=== PATIENT | female | born 1950 | race Hispanic/Latino ===

== ENCOUNTER 2019-06-21 06:40 | Day surgery (SDC) | payer MEDICARE ==
[~2019-06-21] VITALS: Ht 154.9 cm; Wt 102.1 kg
[~2019-06-21 06:40] MED LIST: AMLODIPINE BES2.5 MG PO; ASPIR-LOW81 MG PO; PANTOPRAZOLE SO40 MG PO; VITAMIN D1000 UNI1 PO
[2019-06-21] MEDS ORDERED: VITAMIN C500 M1 PO (07:04)
--- NOTE | 2019-06-21 09:25 | NUR ---
06/21/19 09 Carmen Pérez 0920 PATIENT ARRIVES TO PACU UNRESPONSIVE TO VERBAL STIMULI, ORAL AIRWAY IN PLACE. RESP EVEN AND UNLABORED, MASK AT 6 LITERS. 09 PATIENT OPENING EYES OFF/ON. FOLLOWS COMMANDS TO OPEN MOUTH. ORAL AIRWAY REMOVED. RESP EVEN AND UNLABORED, MASK CONTINUED AT 6 LITERS. 09 PATIENT REMOVES MASK TO ITCH FACE, THEN BACK TO SLEEP. RESP EVEN AND UNLABORED, ROOM AIR SATS >95%.
--- NOTE | 2019-06-21 09:40 | NUR ---
FAMILY AT THE BEDSIDE. ICED WATER GIVEN. CALL LIGHT WITHIN REACH.
[2019-06-21] MEDS ORDERED: NORCO 5-325 TA1 EACH PO (10:12)
--- NOTE | 2019-06-21 10:31 | NUR ---
PATIENT UP TO THE BATHROOM WITH RN STANDBY. PATIENT AMBULATES WELL AND REPORTS SUCCESSFUL VOID. PATIENT REQUESTS PAIN MEDICINE. CRACKERS GIVEN. PATIENT IS EATING AND DRINKING AND TOLERATING THAT WELL. DR. NUNEZ IN TO ASSESS FACIAL NERVES AND ALL WNL. DISCHARGE INSTRUCTIONS ARE GIVEN IN PRESENCE OF FAMILY AND ALL VERBALIZE UNDERSTANDING.
--- NOTE | 2019-06-21 12:33 | PREHP ---
[facility] [address], [place] [address] Signed ADMISSION DATE: 06/21/2019 ANTICIPATED DATE OF SURGERY: 06/21/2019 CHIEF COMPLAINT: Left cheek mass. HISTORY: Lincoln is a 69-year-old lady, who has had a left cheek mass for several years. She has been evaluated by Dr. Vasques in [place] starting in 2014, again in 2017, and again earlier this year. The mass has not really changed on CAT scan evaluation, but it swells up occasionally is very uncomfortable. She has also had some right facial swelling recently, which probably related to a salivary gland infection, which has settled down. PAST HISTORY/REVIEW OF SYSTEMS: Generally positive for diabetes, hypertension. ALLERGIES: Macrobid, meloxicam. CURRENT MEDICATIONS: Amlodipine, pantoprazole, low-dose aspirin. PAST SURGICAL HISTORY: She had cholecystectomy about 20 years ago. SOCIAL HISTORY: She is , lives in [place] and retired. No alcohol or tobacco. FAMILY HISTORY: Noncontributory. PHYSICAL EXAMINATION: VITAL SIGNS: Stable, afebrile. GENERAL: Well-developed, well-nourished female, in no distress. HEAD AND NECK: She has about 15 mm nodule in the right cheek. This is just beneath the malar eminence in the soft tissue of the cheek, just anterior to the masseter overlying the anterior edge. This is slightly tender. Oral cavity shows minimal flow from the Stensen's duct. No other masses or head neck pathology. CHEST: Clear. HEART: Regular rate and rhythm. Electronically Signed By: RUY NUNEZ MD 06/21/19 1233 PATIENT NAME: LINCOLN FOY PREOPERATIVE H&P DATE OF : 50 REPORT #: [id number] PHYSICIAN: RUY NUNEZ MD PCP: RONI APARICIO MD REPORT IS CONFIDENTIAL AND NOT TO BE RELEASED WITHOUT AUTHORIZATION [facility] [address], [place] [address] Signed ABDOMEN: Benign. EXTREMITIES: Benign. NEUROLOGIC: Grossly intact. REVIEW OF CAT SCANS: These were from [facility], reviewed on [place] , the facial CT from 02/12/2015 and 05/15/2017 are reviewed. There is an about a 15 mm subcutaneous mass overlying the masseter on the left side has not really changed in the 2-year interval distinct from the parotid gland, undetermined etiology, and I have reviewed the radiology reports on these scans 1st one from [facility] and the 2nd one from also [facility]. Review of records, office note from Dr. Vasques on 04/06/2017 and 03/17/2019 is reviewed. IMPRESSION: Left cheek mass, probably a lymph node versus auxiliary salivary tissue. This has been swollen, painful, tender and present for several years. RECOMMENDATION: Excision general anesthetic as an outpatient. We discussed internal versus external approach. I feel it would be much easier with the skin approach. The patient is agreeable. We will proceed with this at [facility] outpatient general anesthetic. This is scheduled for next Friday, June 21, 2019. The risks of surgery including bleeding, infection, facial weakness, and need for further therapy pending pathologic inspection have all been explained and accepted. Ruy Nunez MD GC/MODL /[id number] cc: Roni Aparicio MD Copies: RONI APARICIO MD Electronically Signed By: RUY NUNEZ MD 06/21/19 1233 PATIENT NAME: LINCOLN FOY PREOPERATIVE H&P DATE OF : 50 REPORT #: [id number] PHYSICIAN: RUY NUNEZ MD PCP: RONI APARICIO MD REPORT IS CONFIDENTIAL AND NOT TO BE RELEASED WITHOUT AUTHORIZATION [facility] [address] [place] [address] [place], [place] [address] Signed ~ Electronically Signed By: RUY NUNEZ MD 06/21/19 1233 PATIENT NAME: LINCOLN FOY PREOPERATIVE H&P DATE OF : 50 REPORT #: [id number] PHYSICIAN: RUY NUNEZ MD PCP: RONI APARICIO MD REPORT IS CONFIDENTIAL AND NOT TO BE RELEASED WITHOUT AUTHORIZATION
--- NOTE | 2019-06-21 22:35 | EKG ---
[facility] [address] [facility] [place], [place] [address] Signed Normal sinus rhythm Low voltage QRS Possible anterioseptal infarct given the poor R wave progression Borderline ECG No previous ECGs available Confirmed by TERRA MOCK MD ([id number]) on 06/21/2019 10:35:53 PM Electronically Signed By: TERRA MOCK MD 06/21/19 2235 PATIENT NAME: LINCOLN FOY Electrocardiogram DATE OF : 50 PHYSICIAN: TERRA MOCK MD REPORT #: [id number] REPORT IS CONFIDENTIAL AND NOT TO BE RELEASED WITHOUT AUTHORIZATION
--- NOTE | 2019-06-23 08:52 | PATH ---
[facility] [address] [place], [place] [address] Signed SPECIMEN(S): A LEFT CHEEK SPECIMEN SOURCE: A. LEFT CHEEK CLINICAL HISTORY: Left cheek mass. FINAL PATHOLOGIC DIAGNOSIS: Left cheek mass, excision: - Benign serous salivary gland tissue with minimal chronic inflammation, without other distinguishing features. - Negative for malignancy and atypia. LJA:cml:C2NR MICROSCOPIC EXAMINATION: Sections reveal an unencapsulated mass of benign serous salivary glands, loosely packed with a small amount of adipose tissue between various portions of the glands. Focal minimal chronic inflammation is present. No features suggestive of autoimmune salivary gland disease are present. There is no evidence of malignancy or atypia. LJA:cml GROSS DESCRIPTION: The specimen, labeled "LH, left cheek mass," is received in formalin and consists of a 1.4 x 1.0 x 0.5 cm pereyra-yellow and lobulated portion of adipose tissue. The specimen is bisected to show pereyra-yellow and lobulated cut surfaces, and is entirely submitted in cassette (A1). AR (under the direct supervision of a pathologist) The Gross Description was prepared using a voice recognition system. The report was reviewed for accuracy; however, sound-alike word errors, addition and/or deletions may occur. If there is any question about this report, please contact Client Services. PERFORMING LABORATORY: The technical component was performed by [facility], [address] [place] [id number] (Creative Art Director: Michaela Harvey MD; CLIA# [id number]). [facility], [address] [address] (Creative Art Director: Jamaal Parish MD; CLIA# PATIENT NAME: LINCOLN FOY PATHOLOGY DATE OF : 50 REPORT #: [id number] PHYSICIAN: SARA PATHOLOGY PCP: MICHELINE APARICOI MD REPORT IS CONFIDENTIAL AND NOT TO BE RELEASED WITHOUT AUTHORIZATION [address] [address] Signed [id number]). Diagnostician: Jamaal Parish MD Pathologist Electronically Signed 06/23/2019 Copies: ~ PATIENT NAME: LINCOLN FOY PATHOLOGY DATE OF : 50 REPORT #: [id number] PHYSICIAN: SARA PATHOLOGY PCP: MICHELINE APARICIO MD REPORT IS CONFIDENTIAL AND NOT TO BE RELEASED WITHOUT AUTHORIZATION
--- NOTE | 2019-06-28 13:04 | OR ---
[facility] [address] [place], [place] [address] Signed DATE OF OPERATION: 06/21/2019 SURGEON: Ruy Nunez MD PREOPERATIVE DIAGNOSIS: Left cheek mass. POSTOPERATIVE DIAGNOSIS: Left cheek mass. PROCEDURE: Excision of left cheek mass. ANESTHESIA: General LMA; CABLE INSTALLER REPAIRER HELPER, Letitia Zacarias. PREOPERATIVE HISTORY: Ms. Torres is a 69-year-old lady with a several-month history of a mass deep to skin in the left cheek just under the malar eminence. This has been very tender, possibly slightly enlarging. She was taken to the operating room for an excision. OPERATIVE PROCEDURE AND FINDINGS: After informed consent, the patient was taken to the operating room, placed in supine position where general LMA anesthesia was induced. The patient and procedure were verified. The mass in question was marked with a skin marker preop. Left face was sterilely prepped and draped. The incision was made. Incision was marked over the mass in a transverse direction. 1% lidocaine with epi was injected. Incision was made through skin and subcutaneous tissue. Blunt dissection deep to the skin revealed the mass in question was about 15 mm, hard. It appeared to be closely adjacent to a large nerve branch, possibly facial nerve, which was preserved. The lesion was removed, sent to Pathology in formalin. Minimal bleeding, stopped afterwards, controlled with needle point cautery. The wound was copiously lavaged with saline. The wound was then closed with 4-0 interrupted Vicryl subcu, 5-0 running nylon on the skin. The skin was cleansed. Neosporin was applied. The patient was then awakened, extubated, transported to recovery room in good condition. No complications. BLOOD LOSS: Minimal. SPECIMEN: Electronically Signed By: RUY NUNEZ MD 06/28/19 1304 PATIENT NAME: LINCOLN TORRES OPERATIVE REPORT DATE OF : 50 REPORT #: [id number] PHYSICIAN: RUY NUNEZ MD PCP: MICHELINE APARICIO MD REPORT IS CONFIDENTIAL AND NOT TO BE RELEASED WITHOUT AUTHORIZATION [address] [place] [address] Signed To Pathology. DRAINS: No drains. Ruy Nunez MD GC/KAHIL /[id number] Copies: ~ Electronically Signed By: RUY NUNEZ MD 06/28/19 1304 PATIENT NAME: LINCOLN TORRES OPERATIVE REPORT DATE OF : 50 REPORT #: [id number] PHYSICIAN: RUY NUNEZ MD PCP: MICHELINE APARICIO MD REPORT IS CONFIDENTIAL AND NOT TO BE RELEASED WITHOUT AUTHORIZATION
== END 2019-06-21 10:55 | disposition home or self-care (01) ==
LOC: DS 06:40 → OPS 06:40 → DS 08:30 → OPS 08:30
PROVIDERS: Otolaryngology
PROC: 0HB1XZZ Excision of Face Skin, External Approach (ICD-10-PCS; principal; 2019-06-21 08:00)
DX: K11.23 Chronic sialoadenitis (principal); E11.9 Type 2 diabetes mellitus without complications; I10 Essential (primary) hypertension; E66.01 Morbid (severe) obesity due to excess calories; K21.9 Gastro-esophageal reflux disease without esophagitis; Z88.8 Allergy status to other drugs, medicaments and biological substances; Z88.6 Allergy status to analgesic agent; Z79.82 Long term (current) use of aspirin; Z79.899 Other long term (current) drug therapy; Z68.41 Body mass index [BMI] 40.0-44.9, adult
CPT/HCPCS: 00300; 88305; 93005; 93010; J1100; J2250; J2405; J2704; J3010; J7120

== ENCOUNTER 2022-06-14 18:24 | Emergency (ER) | payer MEDICARE ==
[~2022-06-14] VITALS: Ht 154.9 cm; Wt 95.2 kg
[~2022-06-14 18:24] MED LIST changes: +NORCO 5-325 TA1 EACH PO; +VITAMIN C500 M1 PO
[2022-06-14] MEDS ORDERED: COZAAR100 MG PO (18:57)
[2022-06-14] MEDS ORDERED: ONGLYZA5 MG PO (18:58)
--- NOTE | 2022-06-16 18:01 | EKG ---
[facility] [address] [facility] [place] [address] Signed Normal sinus rhythm Inferior infarct , age undetermined Anterior infarct , age undetermined Abnormal ECG When compared with ECG of 21-JUN-2019 07:16, Anterior infarct is now present No significant change was found Confirmed by TERRA OMCK MD ([id number]) on 06/16/2022 6:00:49 PM Electronically Signed By: TERRA MOCK MD 06/16/221800 PATIENT NAME: LINCOLN FOY Electrocardiogram DATE OF : 50 PHYSICIAN: TERRA MOCK MD REPORT #: [id number] REPORT IS CONFIDENTIAL AND NOT TO BE RELEASED WITHOUT AUTHORIZATION
== END 2022-06-14 20:47 | disposition home or self-care (01) ==
LOC: ED 18:24
DX: E86.0 Dehydration (principal); E11.9 Type 2 diabetes mellitus without complications; I10 Essential (primary) hypertension; Z88.8 Allergy status to other drugs, medicaments and biological substances; Z79.899 Other long term (current) drug therapy; Z79.82 Long term (current) use of aspirin
CPT/HCPCS: 36415; 80053; 81001; 83735; 84484; 85025; 93005; 93010; 99284-25